=== PATIENT | female | born 1960 | race Caucasian/White ===

== ENCOUNTER 2019-01-06 05:13 | Emergency (ER) | payer BC, OTHER ==
[2019-01-06 05:54] VITALS: BMI 26.1
--- NOTE | 2019-01-06 06:25 | PDOC ---
History of Present Illness - General Chief Complaint: Injury Stated Complaint: FALL,INJURY Time Seen by Provider: 01/06/19 05:45 - History of Present Illness Initial Comments: 01/06/19 06:19 HPI: 58 y/o F with hx of asthma and HTN presenting following mechanical fall at home with subsequent head trauma. She was getting into the shower and thinks she slipped and hit her head. There was no LOC, seizure, incontinence, chest pain, SOB, emesis. She complains of headache and pain at the site as well as swelling. Had some nausea that resolved. PMHx: as noted above ROS: as noted SHx: Denies tobacco use; no alcohol use; no rec drugs Allergies: NKDA ROS: GENERAL/CONSTITUTIONAL: No fever or chills. No weakness. HEAD, EYES, EARS, NOSE AND THROAT: No change in vision. No ear pain or discharge. No sore throat. CARDIOVASCULAR: No chest pain or shortness of breath RESPIRATORY: No cough, wheezing, or hemoptysis. GASTROINTESTINAL: +nausea; no vomiting, diarrhea or constipation. GENITOURINARY: No dysuria, frequency, or change in urination. MUSCULOSKELETAL: No joint or muscle swelling or pain. No neck or back pain. SKIN: No rash NEUROLOGIC: +headache; no vertigo, loss of consciousness, or change in strength/ sensation. ENDOCRINE: No increased thirst. No abnormal weight change HEMATOLOGIC/LYMPHATIC: No anemia, easy bleeding, or history of blood clots. ALLERGIC/IMMUNOLOGIC: No hives or skin allergy. PE: GENERAL: Awake, alert, and fully oriented, no acute distress HEAD: large right frontal hematoma 5cm in diameter, ttp, with no abrasion or laceration EYES: EOMI, PERRLA, sclera anicteric, conjunctiva clear ENT: Auricles normal inspection, hearing grossly normal, nares patent, oropharynx clear without exudates. Moist mucosa NECK: Normal ROM, no lymphadenopathy, no midline ttp LUNGS: No increased work of breathing, symmetrical chest rise, clear to auscultation bilaterally, no wheezes, crackles or rhonchi HEART: Regular rate and rhythm, normal S1 and S2, no murmurs, peripheral pulses 2+ and equal bilaterally. ABDOMEN: Soft, nondistended, nontender, normoactive bowel sounds. No guarding, no rebound. No masses. No CVAT EXTREMITIES: Normal inspection, Normal range of motion, no edema. No clubbing or cyanosis. NEUROLOGICAL: Cranial nerves II through XII grossly intact. Normal speech, normal gait, no focal sensorimotor deficits SKIN: Warm, Dry, normal turgor, no rashes or lesions noted Past History - Past Medical History Allergies/Adverse Reactions: Allergies Allergy/AdvReac Type Severity Reaction Status Date / Time No Known Allergies Allergy Verified 01/06/19 05:54 Home Medications: Ambulatory Orders Albuterol 0.083% Nebulizer Agatha [Ventolin 0.083%] 1 neb NEB QID PRN 01/06/19 Albuterol Sulfate [Proair Hfa] 8.5 gm IH TID PRN 01/06/19 Budesonide/Formeterol Fumarate [SYMBICORT 160/4.5mcg -] 2 puff IH BID 01/06/19 Metoprolol Succinate [Toprol Xl] 100 mg PO DAILY 01/06/19 Montelukast Na [Singulair -] 10 mg PO HS 01/06/19 Asthma: Yes COPD: No HTN: Yes - Psycho Social/Smoking Cessation Hx Smoking Status: No Smoking History: Never smoked Number of Cigarettes Smoked Daily: 0 Hx Alcohol Use: No Drug/Substance Use Hx: No *Physical Exam - Vital Signs Last Vital Signs Temp Pulse Resp BP Pulse Ox 97.7 F 63 20 151/73 98 01/06/19 05:45 01/06/19 05:45 01/06/19 05:45 01/06/19 05:45 01/06/19 05:45 Medical Decision Making - Medical Decision Making 01/06/19 06:25 58 y/o F with hx of asthma and HTN presenting following mechanical fall at home with subsequent head trauma and large hematoma. VSS, AF. PE with large right forehead hematoma, ttp. Neuro exam intact and without focal deficits -CT head -pain control 01/06/19 06:45 Signed out to day team to followup CT head and dispo appropriately Discharge - Discharge Information Problems reviewed: Yes Clinical Impression/Diagnosis: Traumatic hematoma of head Qualifiers: Encounter type: initial encounter Qualified Code(s): S00.93XA - Contusion of unspecified part of head, initial encounter - Follow up/Referral Referrals: Summer Hardin MD [Primary Care Provider] - - Patient Discharge Instructions - Post Discharge Activity
[2019-01-06] MEDS ORDERED: ACETAMINOPHEN 500 MG TABLET (FP) PO ONE (06:26)
[2019-01-06] MEDS ORDERED: ACETAMINOPHEN 325 MG TABLET (FP) ONE (06:27)
--- NOTE | 2019-01-06 06:42 | PDOC ---
Attending Attestation - Resident Resident Name: Breezy Regan - ED Attending Attestation I have performed the following: I have examined & evaluated the patient, The case was reviewed & discussed with the resident, I agree w/resident's findings & plan, Exceptions are as noted - HPI HPI: 01/06/19 07:59 58F pmh htn, asthma here with forehead pain after mechanical fall. Pt was in shower, slipped and fell forward. No loc, ams, confusion, amnesia, n/v - Physicial Exam PE: 01/06/19 08:00 Agree with exam as documented - Medical Decision Making 01/06/19 08:00 Mechanical trauma, unlikely seizure/syncope analgesia f/u ct b dispo per clinical course
[2019-01-06 06:47] VITALS: BP 138/77; PULSE 65; TEMP 98.2
--- NOTE | 2019-01-06 07:10 | PDOC ---
*Physical Exam - Vital Signs Last Vital Signs Temp Pulse Resp BP Pulse Ox 98.2 F 65 18 138/77 98 01/06/19 06:46 01/06/19 06:46 01/06/19 06:46 01/06/19 06:46 01/06/19 06:46 ED Treatment Course - Medications Given in the ED: ED Medications Discontinued Medications Generic Name Dose Route Start Last Admin Trade Name Ivonne PRN Reason Stop Dose Admin Acetaminophen 975 mg 01/06/19 06:26 01/06/19 06:29 Tylenol - PO 01/06/19 06:27 975 mg ONCE ONE Administration Medical Decision Making - Medical Decision Making Pt signed out to me by Dr. Regan. Pt was pending CT head report, which returned quickly after my shift started. CT report back on imaging drafter (cad) electronic, Dr. Regan informed the pt of her results. CT report: Name: PATRIC[facility] DEPARTMENT OF RADIOLOGY Phys: Breezy Regan RESIDENT : 1960 Age: 58 Sex: F [facility] Acct: [id number] Loc: [address] Exam Date: 01/06/19 Status: [place] [address] Unit Number: [id number] EXAM#: TYPE/EXAM: RESULT: [id number] CT/HEAD CT WITHOUT CONTRAST History. Syncopal event with possible head trauma. CT scan of the brain C-. Findings. Serial axial images of the brain were obtained from foramen magnum to the cranial vertex without intravenous contrast with coronal, sagittal reconstruction. Right frontal scalp injury. No evidence of skull fracture. The CSF spaces are age-appropriate. No evidence of focal, or diffuse atrophic changes. No evidence of hydrocephalus, acute subarachnoid hemorrhage, acute intra-axial or extra-axial fluid collection consistent with subdural or epidural hematoma. No mass effect, midline shift, acute ischemic changes, herniation or edema is present. Normal negro matter white matter differentiation. The cortical sulci, sylvian fissures, perimesencephalic cisterns are not effaced. Normal intracranial physiological calcifications are observed. The visualized paranasal sinuses and mastoid air cells are clear. Impression. No evidence of acute intracranial hemorrhage, edema, midline shift, mass effect, or skull fracture. There is no CT evidence of acute territorial infarction. Reported By: Sachin Cunningham MD 01/06/19 0709 Pt discharged. Discharge - Discharge Information Problems reviewed: Yes Clinical Impression/Diagnosis: Head injury Condition: Stable Disposition: HOME - Admission No - Follow up/Referral Referrals: Summer Hardin MD [Primary Care Provider] - - Patient Discharge Instructions Additional Instructions: Follow up with your primary care doctor within 3 days regarding your Emergency Room visit. Bring all paperwork given to you today to your appointment. Return to the Emergency Department for increasing pain, chest pain, shortness of breath, weakness, numbness, tingling, lightheadedness, changes to vision or gait or any other new, worsening or concerning symptoms. Take Tylenol over the counter for your pain, take as advised on label. - Post Discharge Activity
== END 2019-01-06 07:25 | disposition home or self-care (01) ==
LOC: JER 05:13
DX: S00.93XA Contusion of unspecified part of head, initial encounter (principal); W18.2XXA Fall in (into) shower or empty bathtub, initial encounter; Y93.89 Activity, other specified; Y92.89 Other specified places as the place of occurrence of the external cause; I10 Essential (primary) hypertension; J45.909 Unspecified asthma, uncomplicated
CPT/HCPCS: 70450-TC; 99282-25

== ENCOUNTER 2023-05-08 08:16 | Emergency (ER) | payer BC, OTHER ==
[2023-05-08 08:35] VITALS: BP 119/97; PULSE 93; RESP 16; TEMP 97.6; BMI 27.3
[2023-05-08] MEDS ORDERED: ACETAMINOPHEN INJECTION 100 ML IVPB ONE (09:14)
[2023-05-08] MEDS ORDERED: KETOROLAC TROMETHAMINE 15 MG/ML VIAL ONE (09:14)
[2023-05-08] MEDS ORDERED: METHOCARBAMOL 500 MG TABLET ONE (09:27)
[2023-05-08 09:34] LABS: BASO % 0.5 % (0-2.0); EOS % 2.8 % (0-4.5); HEMATOCRIT 35.9 % (32.4-45.2); HEMOGLOBIN 11.6 GM/dL (10.7-15.3); LYMPH % 16.4 % (8-40); MCH 27.2 pg (25.7-33.7); MCHC 32.4 g/dl (32.0-36.0); MEAN CELL VOLUME 84.1 fl (80-96); MEAN PLT VOLUME 9.1 fl (7.5-11.1); MONO % 7.6 % (3.8-10.2); NEUT % 72.7 % (42.8-82.8); PLATELET COUNT 311 10^3/uL (134-434); RBC 4.27 M/mm3 (3.60-5.2); RDW 14.4 % (11.6-15.6); WHITE BLOOD COUNT 10.2 K/mm3 (4.0-10.0)
[2023-05-08] MEDS: ACETAMINOPHEN 1000 MG/100 ML BAG IVPB ONE (09:35)
[2023-05-08] MEDS: KETOROLAC TROMETHAMINE 15 MG/ML VIAL IVPUSH ONE (09:35)
[2023-05-08] MEDS: METHOCARBAMOL 750 MG TABLET PO ONE (09:35)
[2023-05-08 09:41] LABS: INR 1.03 (0.83-1.09); PROTHROMBIN TIME (PATIENT) 11.9 SEC (9.7-13.0)
[2023-05-08 09:44] LABS: ACTIVATED PTT 34.3 SECONDS (25.2-36.5)
[2023-05-08 10:31] LABS: POTASSIUM 4.8 mmol/L (3.5-5.1)
[2023-05-08 10:32] LABS: CALCIUM 9.3 mg/dL (8.5-10.1)
[2023-05-08 10:33] LABS: ALBUMIN 3.8 g/dl (3.4-5.0); BLOOD UREA NITROGEN 15.4 mg/dL (7-18)
[2023-05-08 10:38] LABS: BILIRUBIN,TOTAL 0.4 mg/dL (0.2-1); TOT PROT 7.8 g/dl (6.4-8.2)
[2023-05-08 10:43] LABS: CREATININE 0.7 mg/dL (0.55-1.3)
[2023-05-08] MEDS ORDERED: LIDOCAINE 4% PATCH TP ONE (14:45)
[2023-05-08] MEDS ORDERED: diazePAM CARPU-JECT 10 MG/2 ML DISP.SYRIN ONE (14:45)
[2023-05-08] MEDS: diazePAM CARPU-JECT 10 MG/2 ML DISP.SYRIN IVPUSH ONE (14:52)
[2023-05-08] MEDS: LIDOCAINE 4% PATCH TP ONE (14:52)
[2023-05-08] MEDS ORDERED: LIDOCAINE PATCH REMOVAL MC ONE (22:00)
== END 2023-05-08 16:18 | disposition home or self-care (01) ==
LOC: JER 08:16
PROC: 3E033NZ Introduction of Analgesics, Hypnotics, Sedatives into Peripheral Vein, Percutaneous Approach (ICD-10-PCS; principal; 2023-05-08)
PROC: 3E033NZ Introduction of Analgesics, Hypnotics, Sedatives into Peripheral Vein, Percutaneous Approach (ICD-10-PCS; 2023-05-08)
PROC: 3E0333Z Introduction of Anti-inflammatory into Peripheral Vein, Percutaneous Approach (ICD-10-PCS; 2023-05-08)
DX: M54.9 Dorsalgia, unspecified (principal); R00.0 Tachycardia, unspecified; M54.2 Cervicalgia; Z20.822 Contact with and (suspected) exposure to COVID-19
CPT/HCPCS: 0241U-QW; 36415; 71046-TC-FY; 80053; 84484; 85025; 85610; 85730; 93005; 93010; 99285-25; J0131

== ENCOUNTER 2023-06-26 10:24 | Emergency (ER) | payer BC, OTHER ==
[2023-06-26 10:29] VITALS: BP 134/77; PULSE 107; RESP 18; TEMP 98.7; BMI 28.3
[2023-06-26] MEDS ORDERED: IBUPROFEN 400 MG TABLET (FP) PO ONE (13:04)
[2023-06-26] MEDS ORDERED: AMOX TR/POT CLAV 875MG/125MG TABLETS (FP) ONE (13:04)
[2023-06-26] MEDS ORDERED: ACETAMINOPHEN 500 MG TABLET (FP) ONE (13:04)
[2023-06-26] MEDS: ACETAMINOPHEN 500 MG TABLET (FP) PO ONE (13:09)
[2023-06-26] MEDS: IBUPROFEN 400 MG TABLET (FP) PO ONE (13:09)
[2023-06-26] MEDS: AMOX TR/POT CLAV 875MG/125MG TABLETS (FP) PO ONE (13:09)
== END 2023-06-26 13:54 | disposition home or self-care (01) ==
LOC: JERFT 10:24
DX: J32.9 Chronic sinusitis, unspecified (principal); R50.9 Fever, unspecified; Z20.822 Contact with and (suspected) exposure to COVID-19
CPT/HCPCS: 0241U-QW; 71046-TC-FY; 87651; 99284-25